=== PATIENT | male | born 1995 | race Asian ===

== ENCOUNTER 2022-04-13 14:01 | Inpatient (IN) ==
[2022-04-13] MEDS ORDERED: ONDANSETRON INJ 2 MG/ML 2 ML VIAL IV STA (14:28)
[2022-04-13] MEDS ORDERED: SODIUM CHLORIDE 0.9% 1000ML 1,000 ML IV ONE (14:28)
[2022-04-13] MEDS ORDERED: KETOROLAC TROMETHAMINE 15 MG/ML VIAL IV ONE (14:28)
[2022-04-13 14:30] LABS: Mean Corpuscular Hemoglobin 29.6 pg (25.0-34.0); Mean Corpuscular Hgb Conc 37.3 g/dL (32.0-36.0); Mean Corpuscular Volume 79.6 fL (80.0-100.0); Mean Platelet Volume 9.4 fL (9.4-12.4); Platelet Count 368 K/uL (130-400); RDW Coefficient of Variation 14.4 % (11.5-14.5); RDW Standard Deviation 39.6 fL (36.4-46.3); Red Blood Count 6.41 M/uL (4.63-6.08)
[2022-04-13 14:37] LABS: iSTAT Creatinine 0.7 mg/dl (0.6-1.3); iSTAT Hemoglobin 19.4 g/dl (14.0-18.0); iSTAT Ionized Calcium 1.19 mmol/l (1.12-1.32); iSTAT Potassium 3.7 mmol/L (3.3-5.0)
[2022-04-13 14:47] LABS: Appearance Urine Clear (Clear); Bilirubin Urine Negative (Negative); Blood Urine Negative (Negative); Color Urine Yellow; Glucose Urine UA Negative (Negative); Ketones Urine 1+ (Negative); Leukocyte Esterase Urine Negative (Negative); Nitrite Urine Negative (Negative); Protein Urine Negative (Negative); Specific Gravity Urine 1.019 (1.000-1.030); Urobilinogen Urine Negative (Negative)
[2022-04-13] MEDS ORDERED: OPTIRAY 350 100ml IV ONE (14:52)
[2022-04-13 15:04] LABS: Basophils # (auto) 0.14 K/uL (0-0.2); Basophils % (auto) 0.5 %; Eosinophils # (auto) 0.03 K/uL (0-0.50); Eosinophils % (auto) 0.1 %; Immature Granulocytes # (auto) 0.14 K/uL (0.00-0.02); Immature Granulocytes % (auto) 0.5 %; Lymphocytes # (auto) 1.24 K/uL (1.2-3.4); Lymphocytes % (auto) 4.2 %; Monocytes # (auto) 1.25 K/uL (0.24-0.82); Monocytes % (auto) 4.3 %; Neutrophils % (auto) 90.4 %
[2022-04-13 15:06] LABS: Albumin Globulin Ratio 1.5 (0.9-2); Albumin Level 4.9 gm/dl (3.4-5.0); BUN Creatinine Ratio 16.7 (10-20); Bilirubin,Total 1.1 mg/dl (0.2-1.0); Calcium 10.1 mg/dl (8.5-10.1); Creatinine Clr Calc Pharmacy 144.3 ml/min; Est GFR (African American) 144.4 ml/min; Est GFR (Non-African American) 124.6 ml/min; Globulin 3.3 gm/dl (2.5-4.0); Potassium 3.8 mmol/L (3.5-5.1); Total Protein 8.2 gm/dl (6.0-8.3)
--- NOTE | 2022-04-13 15:17 | CT Scan Report ---
ABDOMEN AND PELVIS CT WITH IV CONTRAST CT DOSE: 749.15 mGycm HISTORY: Periumbilical abdominal pain vomiting TECHNIQUE: Multiaxial CT images of the abdomen and pelvis were performed following the use of intrave nous contrast. A dose lowering technique was utilized adhering to the principles of ALARA. COMPARISON STUDY: None. FINDINGS: The lung bases are clear. No pneumoperitoneum. No pneumatosis. No fractures within the visu alized osseous structures. The liver, gallbladder, spleen, adrenal glands, and pancreas are unremarka ble. No retroperitoneal lymphadenopathy. There is a left retroareolar renal vein. Normal caliber abdo leroy aorta. There is a 3 cm cyst within the left kidney and an 8 mm cyst within the right kidney. No hydronephrosis. The bladder is unremarkable. No pelvic free fluid. No evidence for bowel obstruction . The appendix is distended, fluid-filled, and thick-walled measuring up to 11 mm in diameter. There is mild periappendiceal fat stranding. This is consistent with acute appendicitis. No perforation or abscess at this time. IMPRESSION: Acute appendicitis. ACT 112: Negative or not required by law. Electronically signed by: Jeffrey Duncan M.D. 04/13/2022 3:15 PM
[2022-04-13] MEDS ORDERED: MoRPHine SULFATE 10 MG/ML CARP/VIAL IV STA (15:22)
[2022-04-13] MEDS ORDERED: cefOXitin 2,000 MG/60 ML BAG IV STA (15:22)
--- NOTE | 2022-04-13 15:27 | Emergency Department Note ---
Impression & Plan Abdominal pain, Acute appendicitis, Leukocytosis ED Provider Note NAME: CAROLEE QUIÑONES AGE: 26 SEX: M : 1995 ARRIVES VIA: Walk-In INFORMANT: Patient ED PROVIDER(S): Gabriel Trejo DO CHIEF COMPLAINT: abdominal pain HPI: Patient is a 26-year-old male who presents ER for abdominal pain. He notes this has been present for the past 24 hours. Pain is a 10 out of 10. Sharp stabbing in the periumbilical region. Associate with nausea and vomiting. Denies any dysuria urgency or frequency. No previous abdominal surgeries. He has never had this before. He notes he feels constipated. No other exacerbating or remitting factors. ROS: See above HPI for pertinent positives & negatives. A total of 10 systems reviewed and were otherwise negative. PAST MEDICAL HISTORY:See Below PAST SURGICAL HISTORY:See Below FAMILY HISTORY:See Below SOCIAL HISTORY:See Below HOME MEDICATIONS:See Below ALLERGIES:See Below VITALS:See Below PHYSICAL EXAMINATION: GENERAL: Sitting up in bed, alert, well appearing, well nourished, no distress, non-toxic EYE EXAM: normal conjunctiva. OROPHARYNX: mucous membranes are moist NECK: supple, no nuchal rigidity, no adenopathy, non-tender LUNGS: Clear to auscultation. Normal chest wall mechanics HEART: no murmurs, S1 normal and S2 normal ABDOMEN: abdomen soft, +TTP with rebound and guarding most focal in the right lower quadrant UPPER EXTREMITIES: upper extremities are grossly normal. LOWER EXTREMITIES: No pitting edema. NEURO EXAM: Normal sensorium, cranial nerves II-XII grossly intact, normal speech, no gross weakness of arms, no gross weakness of legs. MEDICAL DECISION MAKING: Patient is a 26-year-old male who presents the ER for diffuse abdominal pain associate with nausea vomiting which is been present for the past 24 hours. IV was established blood work was obtained. Labs show leukocytosis of 30,000. Hemoglobin was slightly elevated at 19 which I favor secondary to vomiting and dehydration. BMP along with LFTs bilirubin and lipase was unremarkable. UA was clean. COVID was ordered. CT abdomen pelvis confirms acute appendicitis. He was given IV fluids Zofran Toradol and morphine. He was updated bedside. Discussed with the hospitalist and patient will be admitted to general surgery. Triage Nursing notes reviewed. Limited review of prior medical records performed Vital Signs: reviewed and remarkable for no significant abnormalities Differential diagnosis: Differential diagnoses includes but is not limited to gastritis, peptic ulcer disease, GERD, gallbladder disease, pancreatitis, small bowel obstruction, acute coronary syndrome, pericarditis, ischemic bowel, irritable bowel disease, irritable bowel syndrome, appendicitis, diverticulitis, malignancy, hernia, urinary tract infection, torsion, perforation, trauma, infectious. ER treatment provided: See below Diagnostics interpreted by me: ECG: none Cardiac Monitoring: An order was placed for continuous cardiac monitoring. The monitor shows a rate of 92 with sinus rhythm. Laboratory studies: As stated above and show below. Imaging studies: CT abdomen pelvis shows acute appendicitis Consultation(s): Discussed with general surgery Samuel Samuel as described above patient has acute appendicitis Procedures: none Critical Care: None Past Med/Surg History Social History Smoking Status: Never smoker Feels Safe at Home: Yes Allergies Allergies Allergy/AdvReac Type Severity Reaction Status Date / Time No Known Allergies Allergy Verified 04/13/22 16:14 Home Meds Home Medications Medication Instructions Recorded Confirmed phenylephrine 5 1 cap PO DIRECTED PRN 04/13/22 04/13/22 mg-dextromethorphan 10 CONGESTION/COLD SYMPTOMS mg-acetaminophen 325 mg capsule (Vicks DayQuil Cold and Flu Relief) Results & Data (ED) Vital Signs Vital Signs - 24 hr 04/13/22 14:03 04/13/22 14:30 04/13/22 14:31 Temperature 36.6 C Temperature Source Temporal Artery Scan Pulse Rate 100 H 98 H Pulse Rate [Finger] 98 H Respiratory Rate 18 22 22 Respiratory Effort / Characteristics Non-Labored Non-Labored Spontaneous Respiratory Depth Normal Normal Respiratory Pattern Blood Pressure 145/89 H Blood Pressure [Left Arm] 151/104 H Blood Pressure Mean 107 Blood Pressure Mean [Left Arm] 119 Blood Pressure Position [Left Arm] Pulse Oximetry 99 98 98 Oxygen Delivery Method Room Air Room Air Room Air Sepsis Recent Fever Within 48 Hours No Sepsis New/Unexplained Change in Mental Status No Sepsis Action Taken by Nursing No Action Required 04/13/22 15:33 Temperature Temperature Source Pulse Rate Pulse Rate [Finger] 101 H Respiratory Rate 16 Respiratory Effort / Characteristics Non-Labored Spontaneous Respiratory Depth Normal Respiratory Pattern Regular Blood Pressure Blood Pressure [Left Arm] 133/92 Blood Pressure Mean Blood Pressure Mean [Left Arm] 105 Blood Pressure Position [Left Arm] Lying Pulse Oximetry 98 Oxygen Delivery Method Room Air Sepsis Recent Fever Within 48 Hours Sepsis New/Unexplained Change in Mental Status Sepsis Action Taken by Nursing Laboratory Data Result diagrams: 04/13/22 14:21 04/13/22 14:21 Lab Results 04/13/22 04/13/22 04/13/22 Range/Units 14:21 14:21 14:24 WBC 29.20 H (4.8-10.8) K/ul RBC 6.41 H (4.63-6.08) M/uL Hgb 19.0 H (14.0-18.0) g/dl POC Hgb 19.4 H (14.0-18.0) g/dl Hct 51.0 (40.1-51.0) % POC Hct 57 H (42-52) % MCV 79.6 L (80.0-100.0) fL MCH 29.6 (25.0-34.0) pg MCHC 37.3 H (32.0-36.0) g/dL RDW Std Deviation 39.6 (36.4-46.3) fL RDW Coeff of Jocelin 14.4 (11.5-14.5) % Plt Count 368 (130-400) K/uL MPV 9.4 (9.4-12.4) fL Immature Gran % (Auto) 0.5 % Neut % (Auto) 90.4 % Lymph % (Auto) 4.2 % Coal % (Auto) 4.3 % Eos % (Auto) 0.1 % Baso % (Auto) 0.5 % Neut # (Auto) 26.40 H (1.4-6.5) K/uL Lymph # (Auto) 1.24 (1.2-3.4) K/uL Coal # (Auto) 1.25 H (0.24-0.82) K/uL Eos # (Auto) 0.03 (0-0.50) K/uL Baso # (Auto) 0.14 (0-0.2) K/uL Immature Gran # (Auto) 0.14 H (0.00-0.02) K/uL POC Sodium 138 (135-144) mmol/L Sodium 136 (136-145) mmol/L POC Potassium 3.7 (3.3-5.0) mmol/L Potassium 3.8 (3.5-5.1) mmol/L POC Chloride 102 (101-112) mmol/L Chloride 102 (98-107) mmol/L Carbon Dioxide 23 (21-32) mmol/L POC Total CO2 22 L (24-31) mmol/L Anion Gap 11 (3-11) POC Anion Gap 19.0 (16-25) mmol/L POC BUN 14 (7-18) mg/dl BUN 13 (6-23) mg/dl Creatinine 0.78 (0.6-1.4) mg/dl POC Creatinine 0.7 (0.6-1.3) mg/dl Est Cr Clr Drug Dosing 144.3 ml/min Est GFR ( Amer) 144.4 ml/min Est GFR (Non-Af Amer) 124.6 ml/min BUN/Creatinine Ratio 16.7 (10-20) Glucose 101 H (70-99(Fasting)) mg/dl POC Glucose (other) 106 H (70-99) mg/dl Calcium 10.1 (8.5-10.1) mg/dl POC Ioniz Calcium Aicha 1.19 (1.12-1.32) mmol/l Total Bilirubin 1.1 H (0.2-1.0) mg/dl AST 15 (13-39) U/L ALT 29 (7-52) U/L Alkaline Phosphatase 83 (34-104) U/L Total Protein 8.2 (6.0-8.3) gm/dl Albumin 4.9 (3.4-5.0) gm/dl Globulin 3.3 (2.5-4.0) gm/dl Albumin/Globulin Ratio 1.5 (0.9-2) Lipase 30 (11-82) U/L Urine Color Urine Appearance (Clear) Urine pH (4.5-7.5) Ur Specific [place] (1.000-1.030) Urine Protein (Negative) Urine Glucose (UA) (Negative) Urine Ketones (Negative) Urine Blood (Negative) Urine Nitrite (Negative) Urine Bilirubin (Negative) Urine Urobilinogen (Negative) Ur Leukocyte Esterase (Negative) SARS-CoV-2, RNA, NAAT (NEGATIVE) 04/13/22 04/13/22 Range/Units 14:32 15:28 WBC (4.8-10.8) K/ul RBC (4.63-6.08) M/uL Hgb (14.0-18.0) g/dl POC Hgb (14.0-18.0) g/dl Hct (40.1-51.0) % POC Hct (42-52) % MCV (80.0-100.0) fL MCH (25.0-34.0) pg MCHC (32.0-36.0) g/dL RDW Std Deviation (36.4-46.3) fL RDW Coeff of Jocelin (11.5-14.5) % Plt Count (130-400) K/uL MPV (9.4-12.4) fL Immature Gran % (Auto) % Neut % (Auto) % Lymph % (Auto) % Coal % (Auto) % Eos % (Auto) % Baso % (Auto) % Neut # (Auto) (1.4-6.5) K/uL Lymph # (Auto) (1.2-3.4) K/uL Coal # (Auto) (0.24-0.82) K/uL Eos # (Auto) (0-0.50) K/uL Baso # (Auto) (0-0.2) K/uL Immature Gran # (Auto) (0.00-0.02) K/uL POC Sodium (135-144) mmol/L Sodium (136-145) mmol/L POC Potassium (3.3-5.0) mmol/L Potassium (3.5-5.1) mmol/L POC Chloride (101-112) mmol/L Chloride (98-107) mmol/L Carbon Dioxide (21-32) mmol/L POC Total CO2 (24-31) mmol/L Anion Gap (3-11) POC Anion Gap (16-25) mmol/L POC BUN (7-18) mg/dl BUN (6-23) mg/dl Creatinine (0.6-1.4) mg/dl POC Creatinine (0.6-1.3) mg/dl Est Cr Clr Drug Dosing ml/min Est GFR ( Amer) ml/min Est GFR (Non-Af Amer) ml/min BUN/Creatinine Ratio (10-20) Glucose (70-99(Fasting)) mg/dl POC Glucose (other) (70-99) mg/dl Calcium (8.5-10.1) mg/dl POC Ioniz Calcium [place]ich[place] (1.12-1.32) mmol/l Total Bilirubin (0.2-1.0) mg/dl AST (13-39) U/L ALT (7-52) U/L Alkaline Phosphatase (34-104) U/L Total Protein (6.0-8.3) gm/dl Albumin (3.4-5.0) gm/dl Globulin (2.5-4.0) gm/dl Albumin/Globulin Ratio (0.9-2) Lipase (11-82) U/L Urine Color Yellow Urine Appearance Clear (Clear) Urine pH 7.0 (4.5-7.5) Ur Specific [place] 1.019 (1.000-1.030) Urine Protein Negative (Negative) Urine Glucose (UA) Negative (Negative) Urine Ketones 1+ H (Negative) Urine Blood Negative (Negative) Urine Nitrite Negative (Negative) Urine Bilirubin Negative (Negative) Urine Urobilinogen Negative (Negative) Ur Leukocyte Esterase Negative (Negative) SARS-CoV-2, RNA, NAAT NEGATIVE (NEGATIVE) Administered Medications Discontinued Medications Sodium Chloride (Nss 1000ml) 1,000 mls @ 999 mls/hr IV .Q1H1M ONE Stop: 04/13/22 15:28 Last Infusion: 04/13/22 15:53 Dose: 0 mls/hr Documented By: Admin: 04/13/22 14:36 Dose: 999 mls/hr Documented By: LESLIE Cefoxitin Sodium (Mefoxin) 2,000 mg in 60 mls @ 100 mls/hr IV NOW STA Stop: 04/13/22 15:57 Last Infusion: 04/13/22 16:18 Dose: 0 mls/hr Documented By: Admin: 04/13/22 15:33 Dose: 100 mls/hr Documented By: KATIE Ioversol (Optiray 350 100ml) 85 ml IV ONCE ONE Stop: 04/13/22 14:53 Last Admin: 04/13/22 14:52 Dose: 85 ml Documented By: KATHRYN Ketorolac Tromethamine (Ketorolac Tromethamine 15 Mg/Ml Vial) 15 mg IV NOW ONE Stop: 04/13/22 14:29 Last Admin: 04/13/22 14:34 Dose: 15 mg Documented By: LESLIE Morphine Sulfate (Morphine Sulfate 10 Mg/Ml Carp/Vial) 6 mg IV NOW STA Stop: 04/13/22 15:23 Last Admin: 04/13/22 15:29 Dose: 6 mg Documented By: KATIE Ondansetron HCl (Ondansetron Inj 2 Mg/Ml 2 Ml Vial) 4 mg IV NOW STA Stop: 04/13/22 14:29 Last Admin: 04/13/22 14:34 Dose: 4 mg Documented By: LESLIE Imaging Data Radiologist's Impression: Abdomen/Pelvis CT 04/13/22 14:[address] WITH IV CONTRAST CT DOSE: 749.15 mGycm HISTORY: Periumbilical abdominal pain vomiting TECHNIQUE: Multiaxial CT images of the abdomen and pelvis were performed following the use of intravenous contrast. A dose lowering technique was uti lized adhering to the principles of ALARA. COMPARISON STUDY: None. FINDINGS: The lung bases are clear. No pneumoperitoneum. No pneumatosis. No fractures within the visualized osseous structures. The liver, gallbladder, spleen, adrenal glands, and pancreas are unremarkable. No retroperitoneal lymphadenopathy. There is a left retroareolar renal vein. Normal caliber abdominal aorta. There is a 3 cm cyst within the left kidney and an 8 mm cyst within the right kidney. No hydronephrosis. The bladder is unremarkable. No pelvic free fluid. No evidence for bowel obstruction. The appendix is distended, fluid-filled, and thick-walled measuring up to 11 mm in diameter. There is mild periappendiceal fat stranding. This is consistent with acute appendicitis. No perforation or abscess at this time. IMPRESSION: Acute appendicitis. ACT 112: Negative or not required by law. Electronically signed by: Jeffrey Duncan M.D. 04/13/2022 3:15 PM Discharge Plan Visit Data Chief Complaint: Abdominal Pain Stated Complaint: ABDOM PAIN ED Provider: Gabriel Trejo Discharge Problem: Abdominal pain, Acute appendicitis, Leukocytosis Forms Stand Alone Forms: My [employer] Prescriptions Prescriptions: No Action Vicks DayQuil Cold-Flu Relief 5-10-325 mg Capsule 1 cap PO DIRECTED PRN (Reason: CONGESTION/COLD SYMPTOMS) Referrals Referrals: PCP,NO [Physician] -
--- NOTE | 2022-04-13 16:06 | History & Physical Report ---
Date of Service April 13, 2022 Assessment & Plan (1) Acute appendicitis: Plan: WBC 29,[address] with 11mm inflamed appendix. Will plan for laparoscopic appendectomy. Mefoxin was given at 15:33. 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 He though he might have food poisoning. He woke up at 3 AM with increased pain, [place] constipated, tried taking a laxative. Nothing to eat or drink since last night. Allergies Allergy/AdvReac Type Severity Reaction Status Date / Time No Known Allergies Allergy Verified 04/13/22 16:14 Home Medications Medication Instructions Recorded Confirmed Type phenylephrine 5 1 cap PO DIRECTED PRN 04/13/22 04/13/22 History mg-dextromethorphan 10 CONGESTION/COLD SYMPTOMS mg-acetaminophen 325 mg capsule (Vicks DayQuil Cold and Flu Relief) Past Med/Surg History Social History Smoking Status: Never smoker Feels Safe at Home: Yes Review of Systems Constitutional: no fever and no chills Gastrointestinal: + abdominal pain, + bloating, + nausea and + vomiting Physical Exam Constitutional: WD/WN, vitals as above Respiratory: normal respiratory effort, lungs clear to auscultation Cardiovascular: Rate/Rhythm: + tachycardic Gastrointestinal (Abdomen): Inspection/Auscultation: abdomen not distended Percussion/Palpation: + abdomen tender (RLQ>LLQ), + guarding and abdomen soft Results & Data Results & Data ([facility]) Vital Signs (Past 12 Hours) Vital Signs Temp Pulse Pulse Resp BP BP Pulse Ox 04/13/22 15:33 101 H 16 133/92 98 04/13/22 14:31 98 H 22 98 04/13/22 14:30 98 H 22 151/104 H 98 04/13/22 14:03 36.6 C 100 H 18 145/89 H 99 O2 Del Method 04/13/22 15:33 Room Air 04/13/22 14:31 Room Air 04/13/22 14:30 Room Air 04/13/22 14:03 Room Air Supervising Physician Co-Signing Physician Notes As per Samuel roca 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 [facility] yesterday started experience some abdominal discomfort quite significant seen the emergency room today CAT scan and indicates acute appendicitis On examination patient is alert coherent resting comfortably The abdomen is slightly distended guarding but exquisitely tender rebound or right lower quadrant CAT scan was reviewed the lab noted Discussed the patient I feel acute appendicitis the extended he has with significant tenderness and rebound and markedly elevated white count I would recommend laparoscopic appendectomy possible open I did go over with him the idea of treating with antibiotic I think given his clinical picture this may not be a proper avenue to take and also there is a recurrence rate and he would like to proceed accordingly as we have described above Preop antibiotics ordered permit signed all questions answered PG Care Time/CCT Total # of Minutes Spent Total Time Spent with Patient: Total time spent is greater than 50% in coordination of care (as documented) at patient's floor/unit and/or counseling patient: Coding Level of Care Code None Diagnoses Acute appendicitis K35.80
[2022-04-13] MEDS ORDERED: LIDOCAINE 1%/EPINEPHRINE 1:100,000 50 ML VIAL ONE (16:16)
[2022-04-13] MEDS ORDERED: fentaNYL citrate 100 MCG/2 ML VIAL ONE ×3 (16:41→18:21)
[2022-04-13] MEDS ORDERED: MIDAZOLAM HCL 1 MG/ML 2ML VIAL ONE (16:41)
[2022-04-13] MEDS ORDERED: ePHEDrine sulfate 50 MG/ML AMP IV PRN (16:55)
[2022-04-13] MEDS ORDERED: ONDANSETRON INJ 2 MG/ML 2 ML VIAL IV PRN ×2 (16:55→18:25)
[2022-04-13] MEDS ORDERED: ATROPINE SULFATE 0.1 MG/ML 10ML SYR IV PRN (16:55)
--- NOTE | 2022-04-13 16:56 | Anesthesiology Consultation ---
Date of Service April 13, 2022 Assessment & Plan Chart Review Chart Review: Acceptable Risk for Surgery and Patient NOT seen in Pre Admission Testing Consults Requested none ASA [id number] Proposed Anesthesia Anesthesia Type: General (rsi, full stomach on ct scan) Risk / Benefits Reviewed With: PT / POA / Parent / Guardian, Accepts Plan and Informed Consent Obtained History Surgery Operation Date: 04/13/22 15:20 Proposed Procedures p Laparoscopic Appendectomy - Chaka Champion MD, FACS Height/Weight Height: 5 ft 6 in Weight: 82 kg Allergies Allergy/AdvReac Type Severity Reaction Status Date / Time No Known Allergies Allergy Verified 04/13/22 16:14 Medications Home Medications Medication Instructions Recorded Confirmed Last Taken phenylephrine 5 1 cap PO DIRECTED PRN 04/13/22 04/13/22 Unknown mg-dextromethorphan 10 CONGESTION/COLD SYMPTOMS mg-acetaminophen 325 mg capsule (Vicks DayQuil Cold and Flu Relief) NPO Date Last Intake of Fluids: 04/13/22 Time Last Intake of Fluids: 12:00 Last Intake of Fluids Comment: water Date Last Intake of Solids: 04/12/22 Time Last Intake of Solids: 21:00 Exercise / Class Metabolic Activity II 4-5 Yardwork/Stairs/Walk up hill Past Anesthesia History No Hx of Anesthesia Complications and No Family Hx of Anesthesia Complications History of PONV No Hx of PONV and No Hx of Motion Sickness Social History Smoking Status: Never smoker Physical Exam Vital Signs Last Vital Signs Temp 36.7 C 04/13/22 16:33 Pulse 97 H 04/13/22 16:33 Resp 18 04/13/22 16:33 BP 123/79 04/13/22 16:33 Pulse Ox 99 04/13/22 16:33 O2 Del Method 04/13/22 16:33 ENMT Mouth: no dentition abnormality Thyromental Distance: > or= 3.5 Finger Breadths Mallampati Class: II Neck normal visual inspection Respiratory normal respiratory effort Auscultation: lungs clear to auscultation bilaterally Cardiovascular Rate/Rhythm: regular rate and regular rhythm Psychiatric Orientation: alert Testing Laboratory Results 04/13/22 14:21 04/13/22 14:21 Urine Color Yellow 04/13/22 14:32 Urine Appearance Clear (Clear) 04/13/22 14:32 Urine pH 7.0 (4.5-7.5) 04/13/22 14:32 Ur Specific [place] 1.019 (1.000-1.030) 04/13/22 14:32 Urine Protein Negative (Negative) 04/13/22 14:32 Urine Glucose (UA) Negative (Negative) 04/13/22 14:32 Urine Ketones 1+ (Negative) H 04/13/22 14:32 Urine Nitrite Negative (Negative) 04/13/22 14:32 Ur Leukocyte Esterase Negative (Negative) 04/13/22 14:32 04/13/22 14:24 POC Glucose (other) 106 H
[2022-04-13] MEDS ORDERED: GLYCOPYRROLATE 0.2 MG/ML VIAL ONE (17:43)
[2022-04-13] MEDS ORDERED: DEXAMETHASONE SOD INJ 4 MG/ML VIAL ONE (17:43)
[2022-04-13] MEDS ORDERED: NEOSTIGMINE METHYLSULFATE 1 MG/ML 10ML VIAL ONE (17:43)
[2022-04-13] MEDS ORDERED: ROCURONIUM BROMIDE 10 MG/ML 5 ML VIAL IV ONE (17:43)
[2022-04-13] MEDS ORDERED: ONDANSETRON INJ 2 MG/ML 2 ML VIAL ONE (17:43)
[2022-04-13] MEDS ORDERED: SUCCINYLCHOLINE CHLORIDE 20 MG/ML 10 ML VIAL IV ONE (17:43)
[2022-04-13] MEDS ORDERED: PROPOFOL IV EMULSION 10 MG/ML 20 ML VIAL IV ONE ×3 (17:43→18:33)
--- NOTE | 2022-04-13 18:08 | Post Operative Brief Note ---
PG Immediate Post Op with CF Date of Surgery April 13, 2022 Pre & Post Diagnosis Operation Date: 04/13/22 15:20 Pre-Op Diagnosis: Appendicitis Post-Op Diagnosis: Appendicitis I identified the patient and participated in the time-out.: Yes Procedure Operation Date: 04/13/22 15:20 Actual Procedures p Laparoscopic Appendectomy(Not Applicable) - Chaka Champion MD, FACS Surgeon Chaka Champion MD, FACS Home Extension Agent 0 Estimated Blood Loss 5 Findings Consistent with Post-Op Diagnosis Specimens Specimen Description: A. appendix
--- NOTE | 2022-04-13 18:19 | Operative Report ---
PG Post Operative Report Pre & Post Diagnosis Operation Date: 04/13/22 15:20 Pre-Op Diagnosis: Appendicitis Post-Op Diagnosis: Appendicitis I identified the patient and participated in the time-out.: Yes Procedure Operation Date: 04/13/22 15:20 Actual Procedures p Laparoscopic Appendectomy(Not Applicable) - Chaka Champion MD, FACS The patient was brought to the operating theater general endotracheal esthesia supine position the abdomen shaved and prepped byline solution properly draped systemic antibiotics on board patient identified a timeout was had a small incision supraumbilically sufficient to accommodate a Veress needle and 5 mm trocar CO2 insufflated approxi-15 mmHg followed by 5 mm trocar point entry insp ected no injury identified this point we placed the camera towards the right lower quadrant could not see the appendix could not see the cecum omentum was sprayed over that area at this point a 5 mm right upper quadrant port was placed with preemptive local analgesic 1% Xylocaine 5 mm port was placed on direct realization that we were able to place a grasper elevate the cecum still could not identify the appendix you can see the terminal ileum and there was an adhesive band from the base of the cecum going to the lateral abdominal wall at this point we converted the 5 mm supraumbilical trocar to a 12 mm by first removing the 5 mm placed in the camera insufflation right upper quadrant using a Jagruti we opened the incision more and also the fascia and 12 mm trocar was placed on direct visualization the 5 mm trocar that we removed was placed in left lower quadrant from the lower analgesic and direct visualization. The camera was then placed left lower quadrant using the umbilical grasper and the right upper quadrant at this point we were able to elevate the cecum with the right lateral grasper and then was used the scissors to free up the final adhesive band from the lateral cecum going to the lateral wall once we had this freed up then we could see the appendix that was going underneath the terminal ileum distal tip acutely inflamed with some fibrinous exudate did not appear gangrenous we then were able to elevate this off the cecum and created a window between the base of the appendix and the mesoappendix used a purple load were able to free the appendix and resected from off the cecum staple line was checked initially and showed some bleeding minimal but then it was stopped the mesoappendix was then divided using 10 mm clips and assure hemostasis was excellent and we placed that an Endopouch through the umbilical port placed the appendix in it and extracted making sure it was out of the abdomen we then repositioned 12 mm port we were able then to suction out the right lower quadrant hemostasis was excellent there was no bleeding we able to see the suture line at this point the camera was placed in the right upper quadrant trocar site after with visualized that there was no bleeding and then we looked at the left lower quadrant and umbilical area remove those trochars no bleeding appreciated last the right upper quadrant trocar was removed paramedical incisio n was enlarged just make sure that we saw the fashion tactilely he was kind a muscular we then used interrupted 0 Vicryl x2 to close and secured the fascia subcutaneous tissue breath and some Vicryl and 4-0 Monocryl subcuticular Steri- Strips applied procedure was tolerated well by the patient estimate blood loss 5 cc Addendum the patient did not tell me to call anyone after surgery Surgeon Chaka Champion MD, FACS Device Repair Technician 0 Estimated Blood Loss 5 Findings Consistent with Post-Op Diagnosis Acute nonruptured appendix Specimens Appendix Indications Right lower quadrant pain diagnosed acute appendicitis by CAT scan and clinically Description of Procedure merda I attest to the content of the Intraoperative Record and any orders documented therein. Any exceptions are noted below. 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 [facility] yesterday started experience some abdominal discomfort quite significant seen the emergency room today CAT scan and indicates acute appendicitis On examination patient is alert coherent resting comfortably The abdomen is slightly distended guarding but exquisitely tender rebound or right lower quadrant CAT scan was reviewed the lab noted Discussed the patient I feel acute appendicitis the extended he has with significant tenderness and rebound and markedly elevated white count I would recommend laparoscopic appendectomy possible open I did go over with him the idea of treating with antibiotic I think given his clinical picture this may not be a proper avenue to take and also there is a recurrence rate and he would like to proceed accordingly as we have described above Preop antibiotics ordered permit signed all questions answered
[2022-04-13] MEDS ORDERED: oxyCODONE/ACETAMINOPHEN 5mg/325mg TAB PO PRN (18:23)
[2022-04-13] MEDS ORDERED: MoRPHine SULFATE 4 MG/ML 1 ML CARP\\VIAL IV PRN (18:23)
[2022-04-13] MEDS: fentaNYL citrate 100 MCG/2 ML VIAL IV PRN ×2 (18:45→19:15)
--- NOTE | 2022-04-13 19:31 | Anesthesiology Progress Note ---
Date of Service April 13, 2022 Anesthesia Post Procedure Vital Signs Vital Signs: Temp Pulse Pulse Pulse Resp BP BP 04/13/22 19:25 37.1 C 90 20 112/63 04/13/22 19:15 69 22 129/55 L 04/13/22 19:05 74 19 119/70 04/13/22 18:55 78 22 121/75 04/13/22 18:35 95 H 23 109/62 04/13/22 18:45 82 21 131/84 04/13/22 18:27 36.4 C L 90 23 117/59 L 04/13/22 16:33 36.7 C 97 H 18 123/79 04/13/22 16:29 04/13/22 16:28 92 H 16 118/72 04/13/22 15:33 101 H 16 133/92 04/13/22 14:31 98 H 22 04/13/22 14:30 98 H 22 151/104 H 04/13/22 14:03 36.6 C 100 H 18 145/89 H Pulse Ox O2 Del Method O2 Flow Rate 04/13/22 19:25 98 Nasal Cannula 2 04/13/22 19:15 99 Nasal Cannula 2 04/13/22 19:05 95 Nasal Cannula 2 04/13/22 18:55 95 Room Air 04/13/22 18:35 93 Room Air 04/13/22 18:45 97 Room Air 04/13/22 18:27 97 Room Air 04/13/22 16:33 99 Room Air 04/13/22 16:29 Room Air 04/13/22 16:28 98 Room Air 04/13/22 15:33 98 Room Air 04/13/22 14:31 98 Room Air 04/13/22 14:30 98 Room Air 04/13/22 14:03 99 Room Air Pain Intensity Bilateral Abdomen: Pain Intensity: 3 Upper Abdomen: Pain Intensity: 6 Transfer of Care Handoff Completed per policy Notes Mental Status: alert / awake / arousable Patient Amnestic to Procedure: Yes Nausea / Vomiting: adequately controlled Pain: adequately controlled Airway Patency, RR, SpO2: stable & adequate BP & HR: stable & adequate Hydration State: stable & adequate Anesthetic Complications: no major complications apparent Notes: patient had some emergence delirium early in his pacu course during which he was grasping for his face and eyes. He did have some bilateral conjunctival injection at discharge but vision was good and he had no pain. No suspicion of corneal abrasion at this time.
[2022-04-13] MEDS: LACTATED RINGER'S 1,000 ML IV SCH (19:45)
[2022-04-13] MEDS: cefOXitin 2,000 MG in DEXTROSE 5% 50 ML IV SCH (21:33)
[2022-04-14] MEDS: cefOXitin 2,000 MG in DEXTROSE 5% 50 ML IV SCH (03:28)
--- NOTE | 2022-04-14 05:39 | Surgery Progress Note ---
Date of Service April 14, 2022 Assessment & Plan (1) Acute appendicitis: Plan: Status post appendectomy on 04/13/2022 (postop day #1) We will likely advance diet later this morning Continue analgesics Continue antiemetics Continue IV fluids until oral intake is adequate Continue antibiotics in form of cefoxitin while in hospital Likely discharge home if he tolerates diet advancement later today Admission and Anticipated Discharge Date Admission Date: April 13, 2022 Supervising Physician Co-Signing Physician Notes As per Choco Zapien physician judicial administrative assistant The patient is comfortable the abdomen trocar sites Steri-Strips intact abdomen soft Operative findings were discussed with the patient including discharge instructions follow-up in the office in 1 week All question answered Discharge order placed Subjective Patient is resting comfortably in bed. He is thus far tolerating clear liquids. He denies any nausea or vomiting. He notes pain that was present at time of admission has improved. No bowel movement since surgery. Physical Exam Gastrointestinal (Abdomen): Abdomen is soft and nondistended. Patient has 3 laparoscopic incisions that are clean, dry, and intact. Patient has appropriate pain near surgical incisions Results & Data ([facility]) Vital Signs (Past 12 Hours) Vital Signs Temp Pulse Pulse Resp BP Pulse Ox O2 Del Method 04/14/22 02:53 36.7 C 82 16 121/71 97 Room Air 04/13/22 19:45 Nasal Cannula 04/13/22 19:45 Nasal Cannula 04/13/22 21:45 36.8 C 93 H 16 132/81 97 Room Air 04/13/22 22:56 36.2 C L 89 16 130/79 97 Room Air 04/13/22 20:52 87 16 130/79 97 Room Air 04/13/22 20:16 36.7 C 91 H 16 123/81 97 Room Air 04/13/22 19:45 36.5 C 77 16 118/84 98 Nasal Cannula 04/13/22 19:45 36.5 C 77 16 118/84 98 Nasal Cannula 04/13/22 19:25 37.1 C 90 20 112/63 98 Nasal Cannula 04/13/22 19:15 69 22 129/55 L 99 Nasal Cannula 04/13/22 19:05 74 19 119/70 95 Nasal Cannula 04/13/22 18:55 78 22 121/75 95 Room Air 04/13/22 18:35 95 H 23 109/62 93 Room Air 04/13/22 18:45 82 21 131/84 97 Room Air 04/13/22 18:27 36.4 C L 90 23 117/59 L 97 Room Air O2 Flow Rate 04/14/22 02:53 04/13/22 19:45 2 04/13/22 19:45 2 04/13/22 21:45 04/13/22 22:56 04/13/22 20:52 04/13/22 20:16 04/13/22 19:45 2 04/13/22 19:45 2 04/13/22 19:25 2 04/13/22 19:15 2 04/13/22 19:05 2 04/13/22 18:55 04/13/22 18:35 04/13/22 18:45 04/13/22 18:27 PG Care Time/CCT Total # of Minutes Spent Total Time Spent with Patient: Total time spent is greater than 50% in coordination of care (as documented) at patient's floor/unit and/or counseling patient: Coding Level of Care Code None Diagnoses Acute appendicitis K35.80
[2022-04-14] MEDS: LACTATED RINGER'S 1,000 ML IV SCH (09:23)
--- NOTE | 2022-04-16 19:07 | Discharge Summary ---
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 He though he might have food poisoning. He woke up at 3 AM with increased pain, N/V. [place] constipated, tried taking a laxative. Nothing to eat or drink since last night. Discharge Data Consultations 04/13/22 15:31 ED Decision to Admit Stat Procedures Performed Operation Date: 04/13/22 15:20 Actual Procedures p Laparoscopic Appendectomy(Not Applicable) - Chaka Champion MD, [facility] Hospital Course (1) Acute appendicitis: This is a 26-year-old male who presented the emergency department and was admitted to the hospital on 04/13/2022. CT scan and abdominal imaging showed the patient had acute appendicitis and Dr. Hidalgo daily took him to the operating room the day of admission and performed an uncomplicated laparoscopic appendectomy. Patient progressed well and had an uncomplicated postoperative course and was able to be discharged home on postop day #1 which was 04/14/2022. The patient was provided with appropriate wound care, diet, and activity instructions. He was told to follow-up with Dr. Hidalgo daily in 1 to 2 weeks in the office. Coding Level of Care Code None Diagnoses Acute appendicitis K35.80
== END 2022-04-14 10:15 | disposition home or self-care (01) | DRG 343 ==
LOC: ED 14:01 → OR 16:30 → 3W 18:19
DX: K35.80 Unspecified acute appendicitis